=== PATIENT | male | born 1975 | race Caucasian/White ===

== ENCOUNTER 2017-08-16 07:16 | Day surgery (SDC) | payer OTHER ==
[2016-07-17 10:21] VITALS: BMI 34.2
[2017-08-16] MEDS ORDERED: Propofol 10 mg/ml Inj (20 ML) ONE (10:38)
[2017-08-16] MEDS ORDERED: Midazolam 2 MG/2 ML VIAL ONE (10:38)
[2017-08-16 11:17] VITALS: TEMP 97.2
[2017-08-16 13:09] VITALS: BP 102/68; PULSE 68; RESP 12; O2SAT 98
== END 2017-08-16 13:00 | disposition home or self-care (01) ==
LOC: C.ENDO 07:16
PROVIDERS: ATTEND Internal Medicine
DX: Z01.818 Encounter for other preprocedural examination (principal); K29.70 Gastritis, unspecified, without bleeding
CPT/HCPCS: 43239; 88305; J2250; J2704